=== PATIENT | male | born 1940 | race Caucasian/White ===

== ENCOUNTER 2017-07-13 08:01 | Emergency (ER) | payer MEDICARE ==
[~2017-07-13] VITALS: Ht 177.8 cm; Wt 105.0 kg
[~2017-07-13 08:01] MED LIST: ALPHAGAN P0.1 % OU; ASPIRIN EC81 MG PO; D31000 UNI1 PO; GABAPENTIN300 MG PO; GLIPIZIDE ER2.5 MG PO; JANUMET1 TA1 PO; LANTUS100 MG/ML SC; LISINOPRIL/HYDR1 TA1 PO; NAPROXEN250 MG PO; SIMVASTATIN40 MG PO
[2017-07-13 08:33] LABS: HEMATOCRIT 38.3 % (39.0-50.0); IMMATURE GRANULOCYTES 2.1 % (0.0-1.0); MEAN CELL VOLUME 85.9 fL CALC (80.0-100.0); MEAN CORPUSCULAR HGB 29.1 pG CALC (26.0-32.0); MEAN CORPUSCULAR HGB CONC 33.9 g/L CALC (32.0-36.0); NEUT# 9.99 thou/uL (1.82-7.42); RED BLOOD COUNT 4.46 mill/uL (4.70-6.10); RED CELL DISTRI WIDTH 14.6 % (11.5-15.5)
[2017-07-13 08:41] LABS: URINE BILIRUBIN - DIPSTICK NEGATIVE (NEGATIVE); URINE BLOOD DIPSTICK NEGATIVE (NEGATIVE); URINE COLOR YELLOW; URINE GLUCOSE - DIPSTICK NEGATIVE (NEGATIVE); URINE KETONE NEGATIVE (NEGATIVE); URINE LEUK ESTERASE NEGATIVE (NEGATIVE); URINE NITRITE - DIPSTICK NEGATIVE (Negative); URINE PH 5.5 (4.5-8.0); URINE PROTEIN - DIPSTICK NEGATIVE (NEG-TRACE); URINE SPECIFIC GRAVITY 1.025
[2017-07-13 08:42] LABS: URINE CLARITY CLEAR
[2017-07-13 08:48] LABS: BARBITURATES NEGATIVE (NEGATIVE); COCAINE NEGATIVE (NEGATIVE); METHADONE NEGATIVE (NEGATIVE); OXCYCODONE NEGATIVE (NEGATIVE); TETRAHYDROCANNABIONOL NEGATIVE (NEGATIVE); TRICYLIC ANTIDEPRESSANTS NEGATIVE (NEGATIVE)
[2017-07-13 08:53] LABS: ALBUMIN 3.5 g/dL (3.2-5.0); ALKALINE PHOSPHATASE 190 u/l (38-126); ANION GAP 14 (6-22 (CALC)); BUN 34 mg/dL (8-23); BUN/CREATININE RATIO 32 (12-20 (CALC)); CALCIUM 9.9 mg/dL (8.4-10.2); CARBON DIOXIDE 29 mmol/l (22-30); CHLORIDE 100 mmol/l (95-108); GFR > 60 ML/MIN (>=60 (CALC)); GFR FOR AFR.AMER. > 60 ML/MIN (>=60 (CALC)); GLUCOSE 208 mg/dL (82-115); POTASSIUM 3.6 mmol/l (3.5-5.1); SGOT/AST 245 u/l (19-48); SGPT/ALT 208 u/l (11-66); SODIUM 139 mmol/l (137-146); TOTAL PROTEIN 7.2 g/dL (6.3-8.2)
[2017-07-13 09:06] LABS: MYOGLOBIN 120 ng/mL (0 - 121)
[2017-07-13] MEDS ORDERED: LANTUS100 UNIT/M IJ (09:22)
[2017-07-13] MEDS ORDERED: TAMSULOSIN HCL0.4 MG PO (09:25)
[2017-07-13] MEDS ORDERED: VENLAFAXINE75 M2 PO (09:25)
[2017-07-13] MEDS ORDERED: RANITIDINE150 MG PO (09:26)
[2017-07-13] MEDS ORDERED: Levaquin PO (09:28)
[2017-07-13] MEDS ORDERED: TESSALON PER100 MG PO (09:28)
[2017-07-13] MEDS ORDERED: AZITHROMYCIN1 GM PO (09:29)
[2017-07-13 12:19] VITALS: BP 141/67
== END 2017-07-13 12:19 | disposition short-term general hospital (02) ==
LOC: ED 08:01
PROVIDERS: Emergency Medicine
DX: R41.82 Altered mental status, unspecified (principal); R91.8 Other nonspecific abnormal finding of lung field; R94.5 Abnormal results of liver function studies; I45.10 Unspecified right bundle-branch block; I10 Essential (primary) hypertension; E11.9 Type 2 diabetes mellitus without complications; Z79.4 Long term (current) use of insulin; E78.5 Hyperlipidemia, unspecified; R53.1 Weakness; I51.7 Cardiomegaly
CPT/HCPCS: Q9967